=== PATIENT | male | born 1965 | race Caucasian/White ===

== ENCOUNTER 2021-01-05 02:08 | Emergency (ER) | payer OTHER ==
[~2021-01-05] VITALS: Ht 177.8 cm; Wt 108.9 kg
[2021-01-05 02:15] VITALS: BP_SYST 172
[2021-01-05] MEDS ORDERED: KETOROLAC TROMETHAMINE 60 MG/2 ML VIAL IM ONE ×2 (02:29→02:30)
[2021-01-05 02:34] VITALS: BP_SYST 172
[2021-01-06] MEDS ORDERED: MED4 PO ×3 (19:38→19:47)
== END 2021-01-05 02:34 | disposition home or self-care (01) ==
LOC: SED 02:08
DX: M54.5 Low back pain (principal)
CPT/HCPCS: 96372; 99283; J1885

== ENCOUNTER 2021-01-06 18:18 | Emergency (ER) | payer OTHER ==
[~2021-01-06] VITALS: Ht 177.8 cm; Wt 111.1 kg
[2021-01-06 18:40] VITALS: BP_SYST 151
[2021-01-06] MEDS ORDERED: DEXAMETHASONE SOD PHOSPHATE 10 MG/ML VIAL IM ONE (19:30)
[2021-01-06] MEDS ORDERED: MED4 PO ×3 (19:38→19:47)
== END 2021-01-06 20:04 | disposition home or self-care (01) ==
LOC: SED 18:18
DX: M54.12 Radiculopathy, cervical region (principal)
CPT/HCPCS: 96372; 99283; J1100

== ENCOUNTER 2022-11-10 13:05 | Emergency (ER) | payer OTHER ==
[~2022-11-10] VITALS: Ht 177.8 cm; Wt 108.9 kg
[~2022-11-10 13:05] MED LIST: MED4 PO
[2022-11-10 13:10] VITALS: BP_SYST 146
--- NOTE | 2022-11-10 13:15 | NUR ---
Patient triaged and placed in waiting room. VSS and patient appears in no acute distress at this time. Accompanied by SELF, awaiting available bed, and MD notified of need for MSE.
--- NOTE | 2022-11-10 13:45 | NUR ---
PT STATES SHE HAS HAD A COUGH ON AND OFF FOR LAST 5 WEEK, OCCASIONAL BROWNISH SPUTUM. PT TOOK A COVID TEST 5 WEEKS AGO AND IT WAS NEGATIVE
--- NOTE | 2022-11-10 14:45 | NUR ---
DR FLEMING EVALUATING PT IN TRIAGE ROOM
[2022-11-10 15:51] LABS: BASOPHILS % (AUTO) 0.6 % (0.0-2.0); EOSINOPHILS # (AUTO) 0.1 K/uL (0.0-0.4); EOSINOPHILS % (AUTO) 1.5 % (0.0-4.0); HEMATOCRIT 40.4 % (36-54); HEMOGLOBIN 13.2 g/dL (14.0-18.0); LYMPHOCYTES # (AUTO) 3.2 K/uL (1.0-5.5); MEAN CORPUSCULAR HEMOGLOBIN 29 pg (27-31); MEAN CORPUSCULAR HGB CONC 33 % (32-36); MEAN CORPUSCULAR VOLUME 87 fL (79.0-98.0); MONOCYTES # (AUTO) 0.7 K/uL (0.0-1.0); MONOCYTES % (AUTO) 8.1 % (1.7-9.3); NEUTROPHILS # (AUTO) 4.1 K/uL (1.8-7.7); NEUTROPHILS % (AUTO) 50.8 % (40.0-70.0); PLATELET COUNT (AUTO) 220 K/uL (130-430); RED BLOOD CELL COUNT(AUTO) 4.62 MIL/uL (4.2-6.2); RED CELL DISTRIBUTION WIDTH 16.4 % (9.0-15.0); WHITE BLOOD COUNT (AUTO) 8.1 K/uL (4.8-10.8)
[2022-11-10 16:06] LABS: ANION GAP 4 (5-15); CHLORIDE 104 mmol/L (98-107); CREATININE 0.73 mg/dL (0.55-1.30); GLUCOSE 97 mg/dL (70-99); UREA NITROGEN, BLOOD 15 mg/dL (8-21)
[2022-11-10 16:08] LABS: GFR AFRICAN AMERICAN 142 mL/min (>90)
--- NOTE | 2022-11-10 16:10 | NUR ---
PT WAITING PATIENTLY IN WAITING ROOM, WAITING FOR BED PLACEMENT.
[2022-11-10 16:18] LABS: ALANINE AMINOTRANSFERASE 49 U/L (12-78); ALBUMIN 3.7 g/dL (3.4-4.8); ASPARTATE AMINOTRANSFERASE 35 U/L (10-37); TOTAL BILIRUBIN 0.4 mg/dL (0.0-1.0)
--- NOTE | 2022-11-10 17:45 | NUR ---
SWABS OBTAINED AND TAKEN TO LAB
[2022-11-10] MEDS ORDERED: IBUP-1969 PO (17:57)
[2022-11-10] MEDS ORDERED: PSEU30TA36 PO (17:57)
--- NOTE | 2022-11-10 18:07 | NUR ---
Patient given written and verbal discharge instructions and verbalizes understanding. ER MD discussed with patient the results and treatment provided. Patient in stable condition. ID arm band removed Rx of SUDAFED, IBUPROFEN given. Patient educated on pain management and to follow up with PMD. Pain Scale 0/10. Opportunity for questions provided and answered. Medication side effect fact sheet provided.
== END 2022-11-10 18:06 | disposition home or self-care (01) ==
LOC: SED 13:05
DX: J40 Bronchitis, not specified as acute or chronic (principal); R05.9 Cough, unspecified; R09.81 Nasal congestion; R06.02 Shortness of breath; Z79.899 Other long term (current) drug therapy; Z20.822 Contact with and (suspected) exposure to COVID-19
CPT/HCPCS: 36415; 71045; 80053; 83605; 83880; 84484; 85025; 99283